=== PATIENT | female | born 1980 | race Caucasian/White ===

== ENCOUNTER 2018-03-20 23:08 | Emergency (ER) | payer OTHER ==
[~2018-03-20] VITALS: Ht 154.9 cm; Wt 87.1 kg
[2018-03-20 23:50] VITALS: Ht 154.9 cm; Wt 87.1 kg
[2018-03-21 01:07] VITALS: BP 160/81
== END 2018-03-21 01:07 | disposition home or self-care (01) ==
LOC: ED 23:08
DX: H60.91 Unspecified otitis externa, right ear (principal); M06.9 Rheumatoid arthritis, unspecified; Z88.5 Allergy status to narcotic agent
CPT/HCPCS: J1885